=== PATIENT | female | born 1990 | race Caucasian/White ===

== ENCOUNTER 2017-01-30 19:21 | Emergency (ER) | payer BC ==
[~2017-01-30] VITALS: Ht 160 cm; Wt 57.0 kg
[2017-01-30 19:47] VITALS: Ht 160 cm; Wt 57.0 kg
[2017-01-30 19:55] LABS: URINE BLOOD (Dip) POC 3+ (NEGATIVE)
[2017-01-30] MEDS ORDERED: KETOROLAC 30 MG INJ IV STA (20:07)
[2017-01-30] MEDS ORDERED: SOD CHLORIDE 0.9% 1,000 ML IV STA (20:07)
[2017-01-30 20:37] LABS: BASOPHILS % 0.4 % (0.0-2.0); EOSINOPHILS # 0.1 10^3/ul (0.0-0.5); EOSINOPHILS % 0.9 % (0.0-7.0); HEMATOCRIT 37.5 % (37.0-47.0); HEMOGLOBIN 12.7 g/dl (12.0-16.0); LYMPHOCYTES # 3.2 10^3/ul (0.8-2.9); LYMPHOCYTES % 28.9 % (15.0-51.0); MEAN CORPUSCULAR HEMOGLOBIN 32.9 pg (29.0-33.0); MEAN CORPUSCULAR HGB CONC 33.9 g/dl (32.0-37.0); MEAN CORPUSCULAR VOLUME 97.2 fl (82.0-101.0); MEAN PLATELET VOLUME 10.2 fl (7.4-10.4); MONOCYTE # 0.7 10^3/ul (0.3-0.9); MONOCYTES % 6.1 % (0.0-11.0); NEUTROPHIL # 6.9 10^3/ul (1.6-7.5); NEUTROPHILS % 63.4 % (39.0-77.0); PLATELET COUNT 243 10^3/UL (140-415); RED BLOOD COUNT 3.86 10^6/ul (4.20-5.40); RED CELL DISTRIBUTION WIDTH 11.8 % (11.5-14.5); WHITE BLOOD COUNT 10.9 10^3/ul (4.8-10.8)
[2017-01-30 20:39] LABS: ADD UMIC YES; UR ASCORBIC ACID NEGATIVE (NEGATIVE); UR BACTERIA FEW /HPF (NONE SEEN); UR BILIRUBIN (Dip) NEGATIVE (NEGATIVE); UR BLOOD (Dip) 3+ mg/dL (NEGATIVE); UR CLARITY SLIGHTLY CLOUDY (CLEAR); UR COLOR YELLOW (YELLOW); UR GLUCOSE (Dip) NEGATIVE (NEGATIVE); UR KETONES (Dip) NEGATIVE (NEGATIVE); UR LEUKOCYTE ESTERASE (Dip) TRACE Leu/ul (NEGATIVE); UR MUCUS FEW /HPF (NONE SEEN); UR NITRITE (Dip) NEGATIVE (NEGATIVE); UR RBC 2 /HPF (0-5); UR SPECIFIC GRAVITY (Dip) 1.014 (1.003-1.030); UR SQUAMOUS EPITHELIAL CELL FEW /HPF (FEW); UR TOTAL PROTEIN (Dip) 1+ mg/dl (NEGATIVE); UR UROBILINOGEN (Dip) NEGATIVE (NEGATIVE)
[2017-01-30 20:59] LABS: INR 0.83; PROTIME 11.4 Sec (12.2-14.2); PT RATIO 0.9
[2017-01-30 21:01] LABS: PARTIAL THROMBOPLASTIN TIME 26.3 Sec (25.0-35.0)
[2017-01-30 21:10] LABS: ALANINE AMINOTRANSFERASE 33 IU/L (13-69); ALBUMIN 3.7 g/dl (3.3-4.9); ALBUMIN/GLOBULIN RATIO 1.23; ALKALINE PHOSPHATASE 42 IU/L (42-121); AMYLASE 93 U/L (11-123); ANION GAP 11 (8-16); ASPARTATE AMINO TRANSFERASE 26 IU/L (15-46); BLOOD UREA NITROGEN 11 mg/dl (7-20); CALCIUM 8.9 mg/dl (8.4-10.2); CARBON DIOXIDE 26 mmol/L (21-31); CHLORIDE 107 mmol/L (97-110); GLUCOSE 93 mg/dl (70-220); POTASSIUM 4.1 mmol/L (3.5-5.1); SODIUM 140 mmol/L (135-144); TOTAL PROTEIN 6.7 g/dl (6.1-8.1)
[2017-01-30 21:16] LABS: C-REACTIVE PROTEIN < 0.5 mg/dl (0.0-0.9)
--- NOTE | 2017-01-30 21:37 | RADRPT ---
PROCEDURE: CT Abdomen and Pelvis without contrast. CLINICAL INDICATION: Bilateral flank pain TECHNIQUE: CT scan of the abdomen and pelvis without contrast was performed on a multidetector hig h-resolution CT scanner. The patient was scanned without intravenous contrast. Coronal and sagittal reformatted images were obtained from the axial source images. Images were reviewed on a high-resol [employer] PACS workstation. The total exam CTDI equals 5.56 mGy and the total exam DLP equals 273.38 mGy -cm. One or more of the following dose reduction techniques were used: Automated exposure control. Adjustment of the mA and/or kV according to patient size. Use of iterative reconstruction technique. COMPARISON: None FINDINGS: CT abdomen: The lung bases are clear. The heart size is normal, without pericardial thickening or effusion. Th e liver is normal in size and density without focal mass or intrahepatic biliary dilatation. The sp alissa is normal in size and homogeneous in density. The stomach is partially collapsed, but is gross ly unremarkable. The pancreas as visualized is normal. The gallbladder is contracted. There is no evidence for biliary dilatation. Small calcifications are seen in the right adrenal gland. The left adrenal gland is unremarkable. The kidneys are symmetrically unremarkable as well. No renal calculu s or obstructive uropathy or mass lesion is seen. The aorta is of normal caliber. There is no retroperitoneal lymphadenopathy. The shola hepatis toni on is clear. There is moderate stool throughout the colon. CT pelvis: The small bowel loops situated within the pelvis are unremarkable. The pelvic organs are normal. T he pelvic sidewalls and inguinal regions are clear. The sigmoid colon and rectum are unremarkable. No mass, lymphadenopathy, or free fluid is seen. No acute inflammation is seen. No osteolytic or osteoblastic lesion is detected. IMPRESSION: 1. No urolithiasis. No hydronephrosis. 2. The appendix is not definitively visualized; however no pericecal inflammatory changes are seen to suggest appendicitis. 3. Moderate stool throughout the colon. Correlate with constipation. RPTAT: HHO .Garett Thorne MD, MD Date Time Electronically viewed and signed by .Garett Thorne MD, on 01/30/2017 21:37 .O/
--- NOTE | 2017-01-30 21:49 | RADRPT ---
PROCEDURE: US Pelvis. CLINICAL INDICATION: pelvic pain TECHNIQUE: Multiple sonographic images of the pelvis were obtained utilizing a transabdominal and endovaginal technique. The images were reviewed on a PACS workstation. COMPARISON: CT from same day FINDINGS: The uterus is normal in size with a normal appearance of the myometrium. The uterus measures 6.4 x 2.7 x 3.2 cm. The endometrial stripe is homogeneous in appearance and has the thickness of 8 mm. The ovaries are normal in size and echogenicity. Normal Doppler flow is identified in both ovaries. The right ovary measures 4.8 x 2.6 x 3.1 cm. The left ovary measures 3.0 x 1.6 cm. There is a small amount of free fluid in the pelvis. RPTAT: AA IMPRESSION: Unremarkable pelvic ultrasound. .Ja Vizcarra MD, Date Time Electronically viewed and signed by .Ja Vizcarra MD, MD on 01/30/2017 21:49 .S/
[2017-01-30] MEDS ORDERED: MED4DP PO (23:31)
[2017-01-30] MEDS ORDERED: IBUP800T25 PO (23:31)
[2017-01-30] MEDS ORDERED: CEPH-443 PO (23:31)
[2017-01-31 00:06] VITALS: BP 124/69; PULSE 94; RESP 18; TEMP 97.6
--- NOTE | 2017-01-31 06:37 | ERD ---
DATE OF SERVICE: 01/31/2017 CHIEF COMPLAINT: Rash and back pain. HISTORY OF PRESENT ILLNESS: This is a 26-year-old female with no past medical history who presents to the Emergency Department complaining of bilateral flank pain for the past 7 days. She indicates she has been sitting for an extended period of time, as she is currently in University and attending classes. She cannot recall any recent or remote trauma to the bilateral hip region or flank region. She states that the pain is a dull achy sensation that has progressively worsened. She also complains of mild frequency, but no urgency or dysuria. She has remained afebrile with shaking or chills. She indicates that 4 days prior to arrival she started to develop a mildly pruritic, nonpainful rash that started in the lower suprapubic region, neckline, and behind her right ear. She denies a headache or neck pain. She states that she is currently sexually active, but denies any abnormal urethral discharge or STD exposure. She denies any pelvic pain. She denies any recent travel or prolonged immobilization. She states she is not taking any medications and has no history of immunocompromisation. She did not take any analgesic medication prior to arrival. She has never had any similar rashes. Her immunizations are up-to-date. She denies any recent changes in detergents and states that she is about to begin her menstrual cycle. She denies any menorrhagia or metrorrhagia. No abnormal vaginal bleeding. PAST MEDICAL HISTORY: None. PAST SURGICAL HISTORY: None. ALLERGIES: NO KNOWN DRUG ALLERGIES. SOCIAL HISTORY: Socially drinks. Denies tobacco or illicit drug use. REVIEW OF SYSTEMS: All 12 systems were reviewed and negative unless as otherwise stated in the History of Present Illness. PHYSICAL EXAMINATION: VITAL SIGNS: Blood pressure is 119/79. Respiratory rate 20. Heart rate 125. Temperature 98.4. Pulse ox is 98 percent on room air. CONSTITUTIONAL: A well-developed, well-nourished female, nontoxic in appearance. HEENT: Normocephalic, atraumatic. Moist mucous membranes. No tonsillar exudates or erythema of the oropharynx. No lesions within the oropharynx. No angioedema. NECK: Supple. No masses and no tenderness. Trachea midline. No lymphadenopathy and no nuchal rigidity. RESPIRATORY: Lungs are clear to auscultation bilaterally with no wheezing, rhonchi or rales. CARDIOVASCULAR: Regular rate, regular rhythm. S1, S2 are normal. No murmurs or rubs are appreciated. Distal pulses are palpable, 2 plus bilaterally. Cap refill less than 2 seconds. GASTROINTESTINAL: Abdomen was soft and nondistended. Mild suprapubic tenderness. Bowel sounds were positive. No dominant masses, or bruits. MUSCULOSKELETAL: Bilateral CVA tenderness. Straight leg test negative bilaterally. SKIN: Warm, dry, with no cyanosis, diaphoresis or edema. Plaques present along the anterior bilateral pelvic region just distal to the umbilicus that extended to the bilateral inguinal region that was superficially raised, circumscribed solid areas, non-blanching and nontender. These were also present behind the right ear. Also described as plaques with similar superficially raise circumscribed solid areas described as plaques on the neck line with no lesions on the palms or the soles of his feet. No bulla, no wheals, no lesions on the extremities or the mucous membranes. Non-blanching rash. No sloughing of the skin. No underlying erythema. DIAGNOSTIC TEST INTERPRETATIONS: Pulse oximetry was interpreted by me as normal. There was no evidence of hypoxemia. Ultrasound of the pelvis was reviewed by me and indicated no evidence of ovarian torsion and no ovarian cyst or free fluid. CT of the abdomen pelvis, without contrast, were reviewed by me and indicated no evidence of obstructive uropathy or secondary changes to suggest appendicitis. ANCILLARY LABORATORY WORK: There was no leukocytosis. White blood count level was 10.9. The patient is not anemic. Hemoglobin was 12.7. Blood glucose was normal at 243. There were no electrolyte abnormalities. Serum sodium 140, potassium 4.1. No acute kidney injury; BUN was 107 and creatinine was 26. The patient had no evidence of hypo- or hyperglycemia; her blood glucose was 93. Urine test was negative and serum test was negative. MEDICAL DECISION MAKING/EMERGENCY DEPARTMENT COURSE: This patient was seen and evaluated by myself and presented to the Emergency Department with bilateral flank pain and a mild pruritic, nonpainful rash. The patient was afebrile and nontoxic in appearance with no evidence of hypotension. Her physical exam findings did suggest lesions that were greater than 0.5 cm in length, consistent with a plaque-like lesion. The lesions were localized around the neck region and belt line and the patient had no recent exposures such as sick contacts, foreign travel or sexual history and her vaccination status is up to date. There have been no new medications. The patient did not present with a viral exanthem or an acute life-threatening rash such as necrotizing fasciitis, septicemia, meningococcemia, lupus, Kawasaki disease, scarlet fever or toxic shock syndrome. Given that the patient did have bilateral flank pain, I did feel it was necessary to obtain a CT scan, without contrast, to rule out the possibility of obstructive uropathy. This was not seen on the CT scan. The patient received IV fluids and Toradol and had significant improvement of her discomfort. I did obtain a urinalysis, given that she has mild symptoms of acute cystitis and it did indicate that there was pyuria with leukocyte positive and negative nitrates. Given that she was symptomatic, we did feel she would benefit from an outpatient treatment p.o. antibiotics which included Keflex. I explained to the patient that I do not have an exact etiology into the cause of her rash; however, as stated above, it did not appear to be an acute life-threatening rash. I indicated that the patient would benefit from following up with the dielectric tester, but in the meantime, was given a course of low- dose steroids. FINAL DISPOSITION: The patient was discharged home in fair condition. DISCHARGE INSTRUCTIONA: Return to the Emergency Department for any new issues or if her condition worsens. IMPRESSION: 1. Urinary tract infection. 2. Bilateral flank pain. Unclear etiology. 3. Rash. Unclear etiology. Dictated By: Vita Veliz MD /chilo/sophie /Document#: [id number]
== END 2017-01-31 | disposition home or self-care (01) ==
LOC: E/R 19:21
DX: N39.0 Urinary tract infection, site not specified (principal); R10.2 Pelvic and perineal pain
CPT/HCPCS: 36415; 74176; 76830; 76856; 80053; 81001; 82150; 83690; 84702; 85025; 85610; 85651; 85730; 86140; 86900; 86901; 87040; 87086; 96374; 99285; J1885; J7030; 81003

== ENCOUNTER 2017-10-11 08:34 | Emergency (ER) | END 2017-10-11 09:30 | disposition home or self-care (01) ==